=== PATIENT | female | born 1935 | race Caucasian/White ===

== ENCOUNTER 2017-07-11 11:19 | Observation (INO) | payer OTHER ==
[2017-07-11] MEDS ORDERED: ADACEL TDaP IM ONE ×2 (11:38→15:48)
--- NOTE | 2017-07-11 12:42 | RAD ---
Examination: Portable AP chest History: Fell Comparison reference 12/06/2013 Findings: Continued normal heart size. No evidence for pneumothorax or localized pulmonary consolidat ion. Suspect fibrosis and scarring in the left costophrenic angle and upper lobes. A right subclavian injection port terminates in the SVC. Impression: No acute process identified. See above. Reported By:
--- NOTE | 2017-07-11 12:47 | RAD ---
Examination: Left wrist, three views History: Fell Findings: No definite fracture, dislocation, or contour deformity involving carpal bones, distal radi us or ulna. Osteopenia and mild osteoarthritis. Impression: No acute injury identified. Reported By:
--- NOTE | 2017-07-11 12:48 | RAD ---
Examination: Right forearm, two views History: Fell Findings: There is no definite forearm fracture or dislocation. There is a faint linear lucency invol ving the radial head. This is probably an artifact. Impression: No definite fracture seen. Dedicated views of the elbow suggested if patient is symptomat ic at this level, see above. Reported By:
--- NOTE | 2017-07-11 13:03 | RAD ---
Examination: Portable AP pelvis History: Fell Findings: A right hip prosthesis is noted without evidence for displacement or fracture. However, the distal stem of the prosthesis is not included in the femur. There is no asymmetric widening of the s acroiliac joints or symphysis pubis. Pelvic soft tissues are normal. Impression: No fracture identified. Status post right MURRAY. The distal stem of the hip prosthesis is n ot visualized on this portable examination. Reported By:
--- NOTE | 2017-07-11 13:39 | CT ---
HISTORY: Status post fall with head injury and headache Study: CT brain without contrast Comparison: None Technique: Multiple axial, coronal, and sagittal CT images of the brain were reviewed without contras t. AEC was utilized. Findings: There is age-appropriate global cerebral volume loss with ex vacuo change and with a background of lopez bcortical, periventricular, and deep white matter low attenuation compatible with chronic microvascul ar ischemic disease without definite findings to suggest an acute or subacute ischemic event. No extr a-axial fluid collections are identified. No intraparenchymal mass or hemorrhage is apparent. Right f rontal scalp soft tissue swelling is noted without underlying calvarial fracture IMPRESSION: Soft tissue injury and intra-axial changes of advancing chronological age without acute intracranial process. Reported By:
--- NOTE | 2017-07-11 13:49 | CT ---
HISTORY: Fall, pain in base of neck Study: CT cervical spine without contrast Comparison: None Technique: Multiple axial images of the cervical spine were obtained from the skull base to the thora cic inlet without administration of IV contrast. Sagittal and coronal reformats were performed and r eviewed. Dose reduction techniques including Automated Exposure Control (AEC) and adjustment of mA an d kV were utilized. Findings: The exam is limited due to patient condition. There is exaggerated lordosis of the cervical spine. Ve rtebral body heights are preserved. There is multilevel spondylosis and facet arthropathy present wit h bilateral uncovertebral spurring at C3-C4. The posterior elements are intact. No evidence of acute fracture or dislocation. The visualized prevertebral and paraspinal soft tissues appear normal. The visualized lung apices are clear. IMPRESSION: 1. Multilevel degenerative changes without acute osseous abnormality. Reported By:
[2017-07-11] MEDS ORDERED: XYLOCAINE 1 % (PLAIN) ONE (14:21)
[2017-07-11] MEDS ORDERED: HYDROGEN PEROXIDE 3% ONE (14:52)
[2017-07-11 15:13] LABS: BASOPHILS # (AUTO) 0.1 X10^3/uL (0.0-0.1); BASOPHILS % (AUTO) 0.6 % (0.2-1.0); EOSINOPHILS % (AUTO) 0.1 % (0.9-2.9); HEMATOCRIT 34.9 % (36.0-47.0); HEMOGLOBIN 11.6 g/dL (12.0-16.0); LYMPHOCYTES # (AUTO) 1.2 X10^3/uL (1.3-2.9); LYMPHOCYTES % (AUTO) 5.4 % (21.0-51.0); MEAN CORPUSCULAR HEMOGLOBIN 28.9 pg (27.0-34.0); MEAN CORPUSCULAR HGB CONC 33.1 g/dL (33.0-35.0); MEAN CORPUSCULAR VOLUME 87.2 fL (80.0-100.0); MEAN PLATELET VOLUME 8.7 fL (7.4-11.0); MONOCYTES # (AUTO) 1.4 x10^3/uL (0.3-0.8); MONOCYTES % (AUTO) 6.4 % (0.0-13.0); NEUTROPHILS # (AUTO) 19.5 x10^3/uL (2.2-4.8); NEUTROPHILS % (AUTO) 87.5 % (42.0-75.0); PLATELET COUNT 484 X10^3/uL (150.0-450.0); RED CELL DISTRIBUTION WIDTH 14.5 % (11.6-16.5); WHITE BLOOD COUNT 22.2 X10^3/uL (3.6-10.0)
[2017-07-11] MEDS ORDERED: BACITRACIN ZINC ONE (15:25)
[2017-07-11 15:27] LABS: BAND NEUTROPHILS % 10 % (0-10)
[2017-07-11 15:28] LABS: PLATELET MORPHOLOGY COMMENT NORMAL (NORMAL)
[2017-07-11 15:33] LABS: ALANINE AMINOTRANSFERASE 12 Units/L (12-78); ALBUMIN 2.7 g/dL (3.4-5.0); ALKALINE PHOSPHATASE 119 Units/L (46-116); ASPARTATE AMINO TRANSFERASE 15 Units/L (15-37); BLOOD UREA NITROGEN 16 mg/dL (7-18); CHLORIDE 100 mmol/L (98-107); CKMB % 1.7 % (<4); CREATINE KINASE 60 Units/L (26-192); CREATINE KINASE MB < 1.0 ng/mL (0-4.0); CREATININE 0.83 mg/dL (0.55-1.02); SODIUM 141 mmol/L (136-145); TOTAL PROTEIN 7.4 g/dL (6.4-8.2); TROPONIN I < 0.02 ng/mL (0-1.5); eGFR BLACK RACES > 60 (>60); eGFR NON BLACK RACES > 60 (>60)
[2017-07-11 15:40] LABS: CALCIUM 9.1 mg/dL (8.5-10.1)
[2017-07-11 15:57] LABS: COR CA(FOR HYPOALB) 9.9 mg/dL (8.5-10.1)
[2017-07-11 16:10] LABS: BILIRUBIN,URINE 2+ (NEGATIVE); BLOOD/HEMOGLOBIN,URINE 5+ (NEGATIVE); GLUCOSE, URINE NEGATIVE (NEGATIVE); KETONES,URINE 3+ (NEGATIVE); LEUKOCYTE ESTERASE ,URINE 1+ (NEGATIVE); NITRITES,URINE NEGATIVE (NEGATIVE); PROTEIN,URINE 3+ (NEGATIVE); UROBILINOGEN,URINE 2+ (NORMAL)
[2017-07-11 16:23] LABS: APPEARANCE,URINE CLEAR (CLEAR); COLOR,URINE DARK YELLOW (YELLOW)
--- NOTE | 2017-07-11 16:29 | DR.TRAUMA ---
HPI - Time Seen Time seen: 11:30 - PCP Primary Care Physician: EILEEN - HPI Comment HPI Comment: PATIENTS DAUGHTER SAID PAT IS BEING SICK FOR FEW DAYS AND HAVE BEING WEAK. SHE IS NOT EATING. SHE NOT RUNNING FEVER. - Complaint/Symptom Chief Complaint Doctors Comments: FEL AND HIT HEAD. LACERATION SUPERFICIAL FOREARMS. LACERATION RT LATERAL EYE BROW. RT FOREHEAD HEMATOMA AND SCALP CONTUSION. NO LOC. Chief Complaint:: FELL AT HOME AND HIT HEAD. - Nurses notes reviewed Nurses Notes Review: Yes - Source History Provided: Patient, Family Member - Mode of Arrival Mode of Arrival: Stretcher - Timing Onset of Chief Complaint: 07/11/17 Came on: Suddenly - Duration Duration: Constant Duration: Days - Context Tetanus: Up to date Prehospital: EMT, Dressings - Location Lacerations: Extremities - Associated signs and symptoms Associated signs and symptoms: Headache PMH - PMH Past Medical History: Yes Past Medical History: Asthma, COPD, Dyslipidemia, GERD Past Surgical History: Yes Surgical History: Appendectomy, Cholecystectomy, Hysterectomy, Joint Replacement - Family History History of Family Medical Conditions: Yes Family Medical History: Diabetes Mellitus, Cancer - Social History Does any household member use tobacco: No Do you use any recreational Drugs:: No Lives With: Family Lives Where: Home - infectious screening In the last 2 months have you had wt loss of >10#?: NO Have you had fever, night sweats or hemotysis?: No Have you traveled outside the country in the last 6 months?: No Isolation: Standard ROS - Review of Systems Constitutional: Weakness, Fatigue. negative: Chills, Fever Eyes: negative: Eye Pain, Discharge ENTM: negative: Ear Pain, Nose Discharge, Nose Congestion Respiratoy: negative: Short of Breath, Wheezing, Hemoptysis Cardiovascular: No Symptoms Reported Gastrointestinal/Abdominal: No Symptoms Reported Genitourinary: No Symptoms Reported Neurological: Headache Musculoskeletal: Joint Pain, Joint Swelling, Muscle Pain, Right Integumentary: No Symptoms Reported, Other (FOREARM LACERATIONSLT 7CM AND RT 3 CM.) Hematologic/Lymphatic: No Symptoms Reported Endocrine: No Symptoms Reported. negative: Flushing, Increased Thirst, Increased Urine All Other Systems: Reviewed and Negative PE - Vitals Vitals: Temperature 98.6 F Pulse Rate 72 Respiratory Rate 18 Blood Pressure [Left Arm] 108/53 Blood Pressure [Right Arm] 123/59 Blood Pressure 125/53 O2 Sat by Pulse Oximetry 96 - General Limitations: No Limitations General Appearance: Alert, Anxious - Head Head Exam: Other (RIGHT FOREHE) Head Exam Physical: Laceration, Contusion, Hematoma - Eyes Eye exam: PERRL, EOMI Eyelids: Normal Inspection: Bilateral Sclera/Conjunctival: Normal Inspection: Bilateral, Hemorrhage: Bilateral - ENT ENT Exam: Normal External Ear Exam External Ear Exam: Normal External Inspection TM/Canal Exam: Bilateral Normal Nose Exam: Normal Nose Exam Mouth Exam: Normal Inspection Teeth Exam: Dental Caries Throat Exam: Normal Inspection - Neck Neck Exam: Trachea Midline Neck Exam Focused: Tenderness (Other) - Chest Chest Inspection: Symmetric Chest Wall Rise Expanded Chest Exam: Other (NONE) - Respiratory Respiratory Exam: Normal Lung Sounds Bilat Respiratory Exam: Bilateral Clear to Auscultation - Cardiovascular Cardiovascular Exam: Regular Rate, Normal Rhythm, Normal Heart Sounds - Abdominal Exam Abdominal Exam: Normal Bowel Sounds, Soft. negative: Tenderness - Extremities Extremities Exam: Tenderness (FOREARM LACERATION,WRIST TENDERNESS J) - Lower Extremities Neurovascular/Tendon Exam: Normal Capillary Refill Gait Exam: Not Tested/Not Observed - Back Back Exam: Paraspinal Tenderness, Vertebral Tenderness - Neurologic Neurological Exam: Alert, Oriented X3, CN II-XII Intact Speech: Fluid Speech Cranial Nerve Exam: EOM Function (II, III, IV, ): Normal, Facial Sensation (V) : Normal, Facial Palsy (VII): Normal, Gag reflex (XI): Normal, Spinal Accessory Function (XI): Normal, Tongue Deviation: Normal Motor Strength - LUE: 4/5 Motor Strength - RUE: 4/5 Motor Strength - LLE: 5/5 Motor Strength - RLE: 5/5 Upper Motor Neuron Exam: Babinski Sign: Normal - Psychiatric Psychiatric Exam: Normal Affect, Normal Mood - Skin Skin Exam: Erythema Type of Lesion: Laceration MDM - Additional Information Additional Information Obtained From: Family - Differential Diagnosis Differential Diagnosis (Trauma): Closed head trauma, Fracture (s), Spine injury Differential Diagnosis (Skin): Contusion (s), Hematoma, Laceration Course - Treatment Treatment: see orders. lac repoired in ed both forearms. - Consultation Consultation Comments: discuss patient with dr. elias. he will admit patient. - Education/Counseling Education/Counseling: Patient, Family, Education Educated On: Treatment, Diagnosis ROR - Labs Reviewed Laboratory Results Reviewed?: Yes Result Diagrams: 07/12/17 05:05 07/12/17 05:05 Laboratory: WBC 16.2 X10^3/uL (3.6-10.0) H 07/12/17 05:05 RBC 3.56 X10^6/uL (3.5-5.4) 07/12/17 05:05 Hgb 10.3 g/dL (12.0-16.0) L 07/12/17 05:05 Hct 31.2 % (36.0-47.0) L 07/12/17 05:05 MCV 87.7 fL (80.0-100.0) 07/12/17 05:05 MCH 28.9 pg (27.0-34.0) 07/12/17 05:05 MCHC 33.0 g/dL (33.0-35.0) 07/12/17 05:05 RDW 14.4 % (11.6-16.5) 07/12/17 05:05 Plt Count 410 X10^3/uL (150.0-450.0) 07/12/17 05:05 Plt Count Comment Increased (ADEQUATE) A 07/11/17 14:41 MPV 8.5 fL (7.4-11.0) 07/12/17 05:05 Neut % 80.7 % (42.0-75.0) H 07/12/17 05:05 Lymph % 9.5 % (21.0-51.0) L 07/12/17 05:05 [place] % 9.0 % (0.0-13.0) 07/12/17 05:05 Eos % 0.3 % (0.9-2.9) L 07/12/17 05:05 Baso % 0.5 % (0.2-1.0) 07/12/17 05:05 Neut # 13.1 x10^3/uL (2.2-4.8) H 07/12/17 05:05 Lymph # 1.5 X10^3/uL (1.3-2.9) 07/12/17 05:05 [place] # 1.5 x10^3/uL (0.3-0.8) H 07/12/17 05:05 Eos # 0.0 x10^3/uL (0.0-0.2) 07/12/17 05:05 Baso # 0.1 X10^3/uL (0.0-0.1) 07/12/17 05:05 Absolute Nucleated RBC 0.0 /100WBC 07/12/17 05:05 Total Counted 100 07/11/17 14:41 Neutrophils % (Manual) 73 % (39-76) 07/11/17 14:41 Band Neutrophils % 10 % (0-10) 07/11/17 14:41 Lymphocytes % (Manual) 9 % (13-43) L 07/11/17 14:41 Monocytes % (Manual) 6 % (4-9) 07/11/17 14:41 Eosinophils % (Manual) 2 % (0-6) 07/11/17 14:41 Plt Morphology Comment Normal (NORMAL) 07/11/17 14:41 RBC Morphology Normal (NORMAL) 07/11/17 14:41 INR Target Range - 07/12/17 05:05 INR 1.69 (0.8-1.3) H 07/12/17 05:05 PTT 32.0 SECONDS (22.9-36.5) 07/12/17 05:05 PTT Comment - 07/12/17 05:05 Sodium 144 mmol/L (136-145) 07/12/17 05:05 Corrected Sodium TNP 07/12/17 05:05 Potassium 3.7 mmol/L (3.5-5.1) 07/12/17 05:05 Chloride 107 mmol/L (98-107) 07/12/17 05:05 Carbon Dioxide 29.9 mmol/L (21-32) 07/12/17 05:05 BUN 21 mg/dL (7-18) H 07/12/17 05:05 Creatinine 0.70 mg/dL (0.55-1.02) 07/12/17 05:05 Est GFR (MDRD) Af Amer > 60 (>60) 07/12/17 05:05 Est GFR (MDRD) Non-Af > 60 (>60) 07/12/17 05:05 Glucose 96 mg/dL (65-99) 07/12/17 05:05 Calcium 8.4 mg/dL (8.5-10.1) L 07/12/17 05:05 Corrected Calcium 9.8 mg/dL (8.5-10.1) 07/12/17 05:05 Magnesium 2.0 mg/dL (1.7-2.9) 07/12/17 05:05 Total Bilirubin 0.20 mg/dL (0.2-1.0) 07/12/17 05:05 AST 18 Units/L (15-37) 07/12/17 05:05 ALT 12 Units/L (12-78) 07/12/17 05:05 Alkaline Phosphatase 73 Units/L (46-116) 07/12/17 05:05 Creatine Kinase 41 Units/L (26-192) 07/12/17 05:05 CK-MB (CK-2) < 1.0 ng/mL (0-4.0) 07/12/17 05:05 CK/CKMB % Calc 2.4 % (<4) 07/12/17 05:05 Troponin I < 0.02 ng/mL (0-1.5) 07/12/17 05:05 Total Protein 6.2 g/dL (6.4-8.2) L 07/12/17 05:05 Albumin 2.2 g/dL (3.4-5.0) L 07/12/17 05:05 Globulin 4.0 g/dL (2.5-4.5) 07/12/17 05:05 Albumin/Globulin Ratio 0.6 Ratio (1.1-2.1) L 07/12/17 05:05 Specimen Type Catherized urine 07/11/17 16:01 Urine Color Dark yellow (YELLOW) 07/11/17 16:01 Urine Appearance Clear (CLEAR) 07/11/17 16:01 Urine pH 5.0 (5.0 - 8.0) 07/11/17 16:01 Ur Specific [place] 1.025 (1.000-1.030) 07/11/17 16:01 Urine Protein 3+ (NEGATIVE) 07/11/17 16:01 Urine Glucose (UA) Negative (NEGATIVE) 07/11/17 16:01 Urine Ketones 3+ (NEGATIVE) 07/11/17 16:01 Urine Occult Blood 5+ (NEGATIVE) 07/11/17 16:01 Urine Nitrite Negative (NEGATIVE) 07/11/17 16:01 Urine Bilirubin 2+ (NEGATIVE) 07/11/17 16:01 Urine Urobilinogen 2+ (NORMAL) 07/11/17 16:01 Ur Leukocyte Esterase 1+ (NEGATIVE) 07/11/17 16:01 Urine RBC 01 - 04 /HPF (NEGATIVE) 07/11/17 16:01 Urine WBC Rare /HPF (NEGATIVE) 07/11/17 16:01 Ur Squamous Epith Cells Rare /HPF (NEGATIVE) 07/11/17 16:01 Amorphous Sediment Trace /HPF (NEGATIVE) 07/11/17 16:01 Urine Bacteria Negative /HPF (NEGATIVE) 07/11/17 16:01 Hyaline Casts Rare /LPF (NEGATIVE) 07/11/17 16:01 Urine Mucus Moderate /HPF (NEGATIVE) 07/11/17 16:01 Ur Culture Indicated? No/not indicated 07/11/17 16:01 - XRAY XRAY Interpreted by: Radiologist XRAY Findings: report discuss with patient - EKG Rhythm: NSR, ST (ekg noted) Procedures - Laceration/Wound Repair Left Wrist Wound Length (cm): 7 Wound's Depth, Shape: Flap (THIN SUPERFICIAL LAC.) Wound Explored: clean Anesthesia: 1% Lidocaine Volume Anesthetic (ccs): 3 Wound Debrided: moderate Suture Size/Type: 6:0, Ethilion Layer Closure?: No Sterile Dressing Applied?: Yes Splint Applied?: No Sling Applied?: No Progress: CONTINUOUS SUTURE TO LT FOREARM LACERATION TO CLOSE Right Wrist Wound Length (cm): 3 Wound's Depth, Shape: Linear Wound Explored: clean Betadine Prep?: Yes Anesthesia: 1% Lidocaine Volume Anesthetic (ccs): 2 Wound Repaired With: sutures Suture Size/Type: 6:0, Ethilion Sterile Dressing Applied?: Yes Splint Applied?: No Sling Applied?: No Progress: CONTINUOUS SUTURE APPLIED TO LACERATION TO CLOSE. - Diagnosis Discharge Problem: Dehydration, Generalized weakness Leukocytosis Qualifiers: Leukocytosis type: leukemoid reaction Qualified Code(s): D72.823 - Leukemoid reaction Laceration of forearm, left Qualifiers: Encounter type: initial encounter Qualified Code(s): S51.812A - Laceration without foreign body of left forearm, initial encounter Laceration of forearm, right Qualifiers: Encounter type: initial encounter Qualified Code(s): S51.811A - Laceration without foreign body of right forearm, initial encounter Laceration of right eyebrow Qualifiers: Encounter type: initial encounter Qualified Code(s): S01.111A - Laceration without foreign body of right eyelid and periocular area, initial encounter Traumatic hematoma of forehead Qualifiers: Encounter type: initial encounter Qualified Code(s): S00.83XA - Contusion of other part of head, initial encounter - Discharge Plan Disposition: 09 ADMITTED INPATIENT Condition: Stable - Follow ups/Referrals - Instructions
[2017-07-11] MEDS ORDERED: ROCEPHIN VIAL 1 GM 1 GM in NS 50 ML IV + SPIKE MINIBAG* 50 ML IV SCH (17:45)
[2017-07-11] MEDS ORDERED: NS 50 ML IV 50 ML IV ONE (17:55)
[2017-07-11] MEDS ORDERED: ROCEPHIN VIAL 1 GM ONE (17:55)
[2017-07-11] MEDS: NS 1000 ML 1,000 ML IV SCH (18:09)
[2017-07-11 18:45] LABS: AMORPHOUS SEDIMENT,UR TRACE /HPF (NEGATIVE); BACTERIA,URINE NEGATIVE /HPF (NEGATIVE); HYALINE CASTS, URINE RARE /LPF (NEGATIVE); SQUAMOUS EPITHELIAL CELL,UR RARE /HPF (NEGATIVE)
[2017-07-11 18:46] LABS: MUCUS,URINE MODERATE /HPF (NEGATIVE)
[2017-07-11 20:53] VITALS: BMI 18.6
[2017-07-11 21:12] LABS: CREATINE KINASE 56 Units/L (26-192); CREATINE KINASE MB < 1.0 ng/mL (0-4.0); TROPONIN I < 0.02 ng/mL (0-1.5)
[2017-07-11 21:14] LABS: CKMB % 1.8 % (<4)
[2017-07-12] MEDS: NS 1000 ML 1,000 ML IV SCH ×3 (01:46→18:08)
[2017-07-12] MEDS ORDERED: TYLENOL SUPP 120 MG PR ONE (02:32)
[2017-07-12 05:45] LABS: BLOOD UREA NITROGEN 21 mg/dL (7-18); CALCIUM 8.4 mg/dL (8.5-10.1); CARBON DIOXIDE 29.9 mmol/L (21-32); CHLORIDE 107 mmol/L (98-107); SODIUM 144 mmol/L (136-145); eGFR BLACK RACES > 60 (>60); eGFR NON BLACK RACES > 60 (>60)
[2017-07-12 06:11] LABS: BASOPHILS # (AUTO) 0.1 X10^3/uL (0.0-0.1); BASOPHILS % (AUTO) 0.5 % (0.2-1.0); EOSINOPHILS % (AUTO) 0.3 % (0.9-2.9); HEMATOCRIT 31.2 % (36.0-47.0); HEMOGLOBIN 10.3 g/dL (12.0-16.0); LYMPHOCYTES # (AUTO) 1.5 X10^3/uL (1.3-2.9); LYMPHOCYTES % (AUTO) 9.5 % (21.0-51.0); MEAN CORPUSCULAR HEMOGLOBIN 28.9 pg (27.0-34.0); MEAN CORPUSCULAR VOLUME 87.7 fL (80.0-100.0); MEAN PLATELET VOLUME 8.5 fL (7.4-11.0); MONOCYTES # (AUTO) 1.5 x10^3/uL (0.3-0.8); NEUTROPHILS # (AUTO) 13.1 x10^3/uL (2.2-4.8); NEUTROPHILS % (AUTO) 80.7 % (42.0-75.0); PLATELET COUNT 410 X10^3/uL (150.0-450.0); RED BLOOD COUNT 3.56 X10^6/uL (3.5-5.4); RED CELL DISTRIBUTION WIDTH 14.4 % (11.6-16.5); WHITE BLOOD COUNT 16.2 X10^3/uL (3.6-10.0)
[2017-07-12 06:19] LABS: ALANINE AMINOTRANSFERASE 12 Units/L (12-78); ALBUMIN 2.2 g/dL (3.4-5.0); ALKALINE PHOSPHATASE 73 Units/L (46-116); ASPARTATE AMINO TRANSFERASE 18 Units/L (15-37); CKMB % 2.4 % (<4); COR CA(FOR HYPOALB) 9.8 mg/dL (8.5-10.1); CREATINE KINASE 41 Units/L (26-192); CREATINE KINASE MB < 1.0 ng/mL (0-4.0); TOTAL PROTEIN 6.2 g/dL (6.4-8.2); TROPONIN I < 0.02 ng/mL (0-1.5)
[2017-07-12] MEDS: ROCEPHIN 1 GM IV PREMIX 1 GM/50 ML IV.SOLN. IV SCH (10:19)
--- NOTE | 2017-07-12 14:00 | DR.H&P ---
H&P - History & Physical for Day of: H&P Date: 07/11/17 - Chief Complaint Chief Complaint: FEELS BAD, MULTIPLE FALLS WITH NEW HEAD INJURY - Allergies Allergies/Adverse Reactions: Allergies Allergy/AdvReac Type Severity Reaction Status Date / Time cefdinir [From Omnicef] AdvReac Verified 07/11/17 20:02 Cephalosporins AdvReac Verified 07/11/17 20:02 chlorpheniramine AdvReac Verified 07/11/17 20:02 levofloxacin [From Levaquin] AdvReac Verified 07/11/17 20:02 moxifloxacin [From Avelox] AdvReac Verified 07/11/17 20:02 telithromycin [From Ketek] AdvReac Verified 07/11/17 20:02 - History of Present Illness History of Present Illness: the patient is an 81-year-old white female who is an ER admission after presenting with family members complaining of fall resulting in LACERATION SUPERFICIAL FOREARMS. LACERATION RT LATERAL EYE BROW. RT FOREHEAD HEMATOMA AND SCALP CONTUSION. NO LOC. patient's family member states patient has been weak with more than one fall over the last several days. Patient has had a cough denies fever nausea vomiting or diarrhea. Patient had a CT of her head in the emergency room which was negative for acute findings other than soft tissue injury to the right for her.. Patient's white count was elevated on admission around 20,000. Patient was started on IV antibiotics and admitted for further evaluation. - Past Medical History Past Medical History: Asthma, COPD, Dyslipidemia, GERD - Past Surgical History Surgical History: Appendectomy, Cholecystectomy, Hysterectomy, Joint Replacement Additional Surgical History: Cataract removal - Family History Family Medical History: Diabetes Mellitus, Cancer - Social History Does patient currently use any type of tobacco product: No Have you used tobacco products in the last 12 months: No Type of Tobacco Use: None Does any household member use tobacco: No Alcohol Use: None Drug Use: None - Medications Home Medications: Albuterol Neb 2.5MG/ 3Ml [Proventil Neb Tx 0.083% 2.5MG/ 3Ml] 1 nebule INH Q6H PRN 07/11/17 [History Confirmed 07/11/17] Donepezil Hydrochloride [ARICEPT TAB 5 MG *] 1 tab PO DAILY 07/11/17 [History Confirmed 07/11/17] - Review of Systems Constitutional: Weakness Eyes: No Symptoms Reported ENT: No Symptoms Reported Respiratory: Cough, SOB with Excertion Cardiovascular: No Symptoms Reported Gastrointestinal: No Symptoms Reported Genitourinary: No Symptoms Reported Musculoskeletal: Arm Pain, Back Pain Skin: Wound Neurological: Weakness - Physical Exam Vital Signs: Temperature 99.1 F Pulse Rate [Left Radial] 105 Pulse Rate 72 Respiratory Rate 18 Blood Pressure [Left Arm] 119/58 Blood Pressure [Right Arm] 123/59 Blood Pressure 125/53 O2 Sat by Pulse Oximetry 98 Oriented: Normal Eyes: Normal Ear: Normal Nose: Normal Throat: Normal Respiratory: Wheezes Throughout, RLL Diminished, LLL Diminished Cardiovascular: Normal : Normal Auscultation: Bowel Sounds: Normal Skin: Decreased Turgur, Wound Musculoskeletal: Back:Lumbar, Motor Deficit Mood Description: Calm Speech Pattern: Clear, Appropriate - Assessment/Plan (1) Leukocytosis Qualifiers: Leukocytosis type: leukemoid reaction Qualified Code(s): D72.823 - Leukemoid reaction Status: Acute Plan: admit patient, head injury precautions, wound care, gentle IV hydration, repeat a.m. labs, IV Rocephin 1 g daily, respiratory consult, pain control (2) Dehydration Status: Acute (3) Generalized weakness Status: Acute (4) Traumatic hematoma of forehead Qualifiers: Encounter type: initial encounter Qualified Code(s): S00.83XA - Contusion of other part of head, initial encounter Status: Acute (5) COPD (chronic obstructive pulmonary disease) Status: Chronic (6) GERD (gastroesophageal reflux disease) Status: Chronic (7) Hyperlipidemia Status: Chronic
[2017-07-12] MEDS ORDERED: PROVENTIL NEB TX 0.083% 2.5MG/ 3ML NEB PRN (19:44)
[2017-07-13] MEDS: NS 1000 ML 1,000 ML IV SCH ×2 (02:54→13:24)
[2017-07-13 06:04] LABS: ALANINE AMINOTRANSFERASE 15 Units/L (12-78); ALKALINE PHOSPHATASE 67 Units/L (46-116); ASPARTATE AMINO TRANSFERASE 19 Units/L (15-37); BLOOD UREA NITROGEN 9 mg/dL (7-18); CALCIUM 8.1 mg/dL (8.5-10.1); CARBON DIOXIDE 27.9 mmol/L (21-32); CHLORIDE 107 mmol/L (98-107); COR CA(FOR HYPOALB) 9.7 mg/dL (8.5-10.1); CREATININE 0.55 mg/dL (0.55-1.02); SODIUM 143 mmol/L (136-145); TOTAL PROTEIN 5.9 g/dL (6.4-8.2); eGFR BLACK RACES > 60 (>60); eGFR NON BLACK RACES > 60 (>60)
[2017-07-13] MEDS ORDERED: K-LYTE EFFERVESCENT PO PRN (06:11)
[2017-07-13] MEDS ORDERED: POTASSIUM CHLORIDE LIQ 20 MEQ UDC PO PRN (06:11)
[2017-07-13] MEDS ORDERED: POTASSIUM CHL 60 MEQ/NS 0.45% 500 ML IV PRN (06:11)
[2017-07-13] MEDS ORDERED: MAG-OX TAB PO PRN (06:11)
[2017-07-13] MEDS ORDERED: MAGNESIUM SULFATE 1 GM/100 mL PREMIX 1 GM/100 ML BAG IV PRN (06:11)
[2017-07-13] MEDS ORDERED: POTASSIUM CHL 40 MEQ/NS 0.45% 500 ML IV PRN (06:11)
[2017-07-13] MEDS ORDERED: K-RIDER 10 MEQ/NS 100 ML 10 MEQ/100 ML BAG IV PRN (06:11)
[2017-07-13 06:26] LABS: BASOPHILS # (AUTO) 0.1 X10^3/uL (0.0-0.1); BASOPHILS % (AUTO) 0.6 % (0.2-1.0); EOSINOPHILS # (AUTO) 0.2 x10^3/uL (0.0-0.2); EOSINOPHILS % (AUTO) 1.6 % (0.9-2.9); HEMATOCRIT 29.4 % (36.0-47.0); HEMOGLOBIN 9.8 g/dL (12.0-16.0); LYMPHOCYTES % (AUTO) 14.6 % (21.0-51.0); MEAN CORPUSCULAR HEMOGLOBIN 29.1 pg (27.0-34.0); MEAN CORPUSCULAR HGB CONC 33.2 g/dL (33.0-35.0); MEAN CORPUSCULAR VOLUME 87.6 fL (80.0-100.0); MEAN PLATELET VOLUME 8.6 fL (7.4-11.0); MONOCYTES # (AUTO) 1.1 x10^3/uL (0.3-0.8); MONOCYTES % (AUTO) 7.7 % (0.0-13.0); NEUTROPHILS # (AUTO) 10.5 x10^3/uL (2.2-4.8); NEUTROPHILS % (AUTO) 75.5 % (42.0-75.0); PLATELET COUNT 373 X10^3/uL (150.0-450.0); RED BLOOD COUNT 3.36 X10^6/uL (3.5-5.4); RED CELL DISTRIBUTION WIDTH 14.8 % (11.6-16.5); WHITE BLOOD COUNT 13.9 X10^3/uL (3.6-10.0)
[2017-07-13] MEDS: ROCEPHIN 1 GM IV PREMIX 1 GM/50 ML IV.SOLN. IV SCH (09:34)
[2017-07-13] MEDS ORDERED: BUTT CREAM (COMPOUND) TOP PRN (10:06)
[2017-07-13] MEDS: PROVENTIL NEB TX 0.083% 2.5MG/ 3ML NEB SCH ×3 (11:48→17:02)
--- NOTE | 2017-07-13 14:45 | CT ---
HISTORY: Altered mental status and fall. Study: CT brain without contrast Comparison: CT head dated July 11, 2017. Technique: Multiple axial images of the brain were obtained from the skull base to the vertex without administra tion of IV contrast. Dose reduction techniques including Automated Exposure Control (AEC) and adjust ment of mA and kV were utilized. Findings: Age-related cortical atrophy and chronic small vessel ischemic changes. No acute intraparenchymal hem orrhage or mass can be identified. No extra-axial fluid collections are seen. No alteration in the attenuation of the brain parenchyma can be identified to suggest acute or subacute ischemic change. The ventricular system is symmetric and nondilated. The extracranial structures are grossly unremark able. IMPRESSION: No acute intracranial pathology. Reported By:
--- NOTE | 2017-07-13 14:50 | RAD ---
Examination: Chest, PA and lateral views History: SOB, history of COPD and asthma Comparison reference: 07/11/2017 Findings: Continued normal heart size with arteriosclerotic aorta. There are diffusely increased inte rstitial markings throughout the lungs especially in the upper lobes and apices. There is no change i n the deformity of the left costophrenic angle. Right subclavian injection port is stable, terminatin g at the cavoatrial junction. There is marked thoracic kyphosis. Impression: 1. No interval change. Radiographic findings continued to suggest bilateral interstitial fibrotic sca rring especially in the upper lobes. Chronic pleural thickening left costophrenic angle. 2. Marked thoracic kyphosis. 3. Stable position of injection port catheter. Reported By:
[2017-07-13] MEDS ORDERED: CHLORASEPTIC SPRAY MT PRN (15:41)
[2017-07-13 17:05] VITALS: BP 133/60
== END 2017-07-13 18:15 | disposition home health service (06) ==
LOC: ER 11:19 → MED/SURG 17:35
PROVIDERS: ADMIT Internal Medicine; ATTEND Internal Medicine
PROC: 0XQH0ZZ Repair Left Wrist Region, Open Approach (ICD-10-PCS; principal; 2017-07-11)
DX: E86.0 Dehydration (principal); S09.8XXA Other specified injuries of head, initial encounter; D72.823 Leukemoid reaction; R53.1 Weakness; S00.83XA Contusion of other part of head, initial encounter; J44.9 Chronic obstructive pulmonary disease, unspecified; K21.9 Gastro-esophageal reflux disease without esophagitis; E78.5 Hyperlipidemia, unspecified; S51.812A Laceration without foreign body of left forearm, initial encounter; S51.811A Laceration without foreign body of right forearm, initial encounter; S01.111A Laceration without foreign body of right eyelid and periocular area, initial encounter; N39.0 Urinary tract infection, site not specified; R06.02 Shortness of breath; M40.294 Other kyphosis, thoracic region; Z91.81 History of falling; W19.XXXA Unspecified fall, initial encounter; Y92.009 Unspecified place in unspecified non-institutional (private) residence as the place of occurrence of the external cause
CPT/HCPCS: 12002; 36415; 70450; 71010; 71020; 72125; 72170; 73090; 73100; 80053; 81001; 82550; 82553; 83735; 84132; 84484; 85025; 85610; 85730; 87040; 90471; 93005; 94640; 94760; 96365; 96367; 96374; 99284; A4222; G0378; J0696; J2001; J7613